=== PATIENT | male | born 1965 | race Caucasian/White ===

== ENCOUNTER 2018-11-25 15:02 | Emergency (ER) | payer OTHER ==
[2018-11-25] MEDS: KETOROLAC 60 MG INJ IM (18:53)
[2018-11-25] MEDS: HYDROCODONE/APAP (5/325) TAB PO (18:53)
== END 2018-11-25 21:38 | disposition home or self-care (01) ==
LOC: FTE 21:38
DX: S82.891A Other fracture of right lower leg, initial encounter for closed fracture (principal); I10 Essential (primary) hypertension; X58.XXXA Exposure to other specified factors, initial encounter; Y92.9 Unspecified place or not applicable
CPT/HCPCS: 29125; 73610-RT; 96372; 99284-25